=== PATIENT | male | born 1955 | race Caucasian/White ===

== ENCOUNTER 2021-03-11 05:02 | Emergency (ER) | payer SELFPAY ==
[2021-03-11] MEDS ORDERED: HYDROmorphone 1 MG/1 ML INJ IV ONE ×2 (05:51→06:55)
[2021-03-11] MEDS ORDERED: ONDANSETRON 4 MG/2 ML INJ IV ONE (05:52)
--- NOTE | 2021-03-11 05:54 | XRay Report ---
RIGHT SHOULDER 3 VIEWS INDICATION / CLINICAL INFORMATION: possible dislocation COMPARISON: None available. FINDINGS: BONES / JOINT(S): No fracture. Subcoracoid dislocation right shoulder. Mild DJD at the glenohumeral j oint. SOFT TISSUES: No significant abnormality. ADDITIONAL FINDINGS: None. Signer Name: Sanchez Ma MD Signed: 03/11/2021 5:49 AM Workstation Name: [id number]
[2021-03-11] MEDS ORDERED: LIDOCAINE (1%) 10 MG/1 ML VIAL 20 ML MDV INFILTRATI ONE (06:08)
--- NOTE | 2021-03-11 06:36 | Emergency Department Report ---
ED Upper Extremity Inj HPI - General Chief Complaint: Extremity Injury, Upper Stated Complaint: RT SHOULDER PAIN Time Seen by Provider: 03/11/21 06:02 Source: patient Mode of arrival: Ambulatory Limitations: No Limitations, Language Barrier - History of Present Illness Initial Comments: CC: shoulder out of place HPI: This is 65 yo male with hx of shoulder dislocation who presents with spontaneous right shoulder dislocation while asleep. The injury occurred 300 am. He has had previous shoulder dislocations. First injury occurred 10 years ago. Severe right shoulder pain with obvious deformity. No new trauma. MD Complaint: Injury to:: right, shoulder -: This morning Other Extremity Injury: Shoulder: Right Handedness: right Worsens With: movement of extremity Associated Symptoms: denies other symptoms - Related Data Allergies Allergy/AdvReac Type Severity Reaction Status Date / Time No Known Allergies Allergy Unverified 03/11/21 05:25 ED Review of Systems ROS: Stated complaint: RT SHOULDER PAIN Other details as noted in HPI Comment: All other systems reviewed and negative Constitutional: denies: fever, malaise Respiratory: denies: cough, shortness of breath Cardiovascular: denies: chest pain Gastrointestinal: denies: abdominal pain, nausea, vomiting Neurological: denies: numbness, paresthesias ED Past Medical Hx - Past Medical History Previous Medical History?: Yes Hx Arthritis: Yes - Surgical History Past Surgical History?: No - Social History Smoking Status: Never Smoker Substance Use Type: None ED Physical Exam - General Limitations: Language Barrier General appearance: alert, in no apparent distress - Head Head exam: Present: atraumatic, normocephalic - Eye Eye exam: Present: normal appearance - ENT ENT exam: Present: mucous membranes moist - Neck Neck exam: Present: normal inspection, full ROM - Respiratory Respiratory exam: Present: normal lung sounds bilaterally. Absent: respiratory distress, wheezes, rales, rhonchi - Cardiovascular Cardiovascular Exam: Present: regular rate, normal rhythm, normal heart sounds. Absent: systolic murmur, diastolic murmur, rubs, gallop - GI/Abdominal GI/Abdominal exam: Present: soft, normal bowel sounds. Absent: distended, ten derness, guarding, rebound - Rectal Rectal exam: Present: deferred - Extremities Exam Extremities exam: Present: normal inspection - Expanded Upper Extremity Exam Right Shoulder Exam: Present: deformity, dislocation. Absent: tenderness, swelling, abrasion, laceration, ecchymosis, erythema, tenderness over AC joint Upper Arm exam: Present: dislocation Elbow exam: Present: normal inspection, full ROM Forearm Wrist exam: Present: normal inspection, full ROM Hand Wrist exam: Present: normal inspection, full ROM Neuro motor exam: Present: wrist extension intact, thumb opposition intact, thumb IP flexion intact Neurosensory exam: Present: 2-point discrimination - Back Exam Back exam: Present: normal inspection - Neurological Exam Neurological exam: Present: alert, oriented X3 - Psychiatric Psychiatric exam: Present: normal affect, normal mood - Skin Skin exam: Present: warm, dry, intact, normal color. Absent: rash ED Course Vital Signs 03/11/21 03/11/21 03/11/21 05:25 06:00 06:16 Temperature 98.9 F Temperature [ Pre-Procedure] Pulse Rate 94 H Pulse Rate [Pre -Procedure] Respiratory 24 18 Rate Respiratory Rate [Pre- Procedure] Blood Pressure 172/93 O2 Sat by Pulse 96 94 Oximetry O2 Sat by Pulse Oximetry [Pre- Procedure] 03/11/21 03/11/21 03/11/21 06:30 06:46 07:00 Temperature Temperature [ 97.8 F Pre-Procedure] Pulse Rate 86 Pulse Rate [Pre 90 -Procedure] Respiratory 13 Rate Respiratory 20 Rate [Pre- Procedure] Blood Pressure O2 Sat by Pulse 94 96 Oximetry O2 Sat by Pulse 99 Oximetry [Pre- Procedure] 03/11/21 03/11/21 03/11/21 07:13 07:15 07:21 Temperature Temperature [ Pre-Procedure] Pulse Rate 89 Pulse Rate [Pre -Procedure] Respiratory 13 13 20 Rate Respiratory Rate [Pre- Procedure] Blood Pressure 211/114 214/106 O2 Sat by Pulse 90 96 Oximetry O2 Sat by Pulse Oximetry [Pre- Procedure] 03/11/21 03/11/21 03/11/21 07:31 07:45 08:01 Temperature Temperature [ Pre-Procedure] Pulse Rate 84 74 77 Pulse Rate [Pre -Procedure] Respiratory 19 15 12 Rate Respiratory Rate [Pre- Procedure] Blood Pressure 176/98 168/85 169/83 O2 Sat by Pulse 97 89 97 Oximetry O2 Sat by Pulse Oximetry [Pre- Procedure] 03/11/21 03/11/21 03/11/21 08:15 08:31 08:45 Temperature Temperature [ Pre-Procedure] Pulse Rate 72 Pulse Rate [Pre -Procedure] Respiratory 10 L 11 L Rate Respiratory Rate [Pre- Procedure] Blood Pressure 157/84 150/77 150/77 O2 Sat by Pulse 96 95 Oximetry O2 Sat by Pulse Oximetry [Pre- Procedure] - Moderate Sedation Indications: fracture/dislocation redu Presedation Evaluation: Healthy male without significant past medical history. ASA 2 ASA Class: II Mallampati Airway Score: 2 Preparation: computer system validation specialist applied, pulse oximeter, capnometry used, supplemental O2 applied, reversal agents at bedside, suction/airway equipment at bedside, IV secured Ketamine Dose: 100 Complications: none Patient Tolerated Procedure: well Additional Comments: 100 mg Ketamine given, 2 doses of 50 mg Respiratory therapist present. Total time of sedation care observation 702 to 718. - Orthopedic Joint Reduction Joint #1 Consent Obtained: written consent, emergent situation Time Out Performed: Yes Side: right Joint Reduction Location: shoulder Analgesia: moderate sedation, other (intra-articular injection) Local Anesthetic Used: Lidocaine 1% Amount of Anesthetic Used (mls): 20 Shoulder Technique Used (if applicable): traction/counter-traction Technique Used: traction/counter-traction Post-Reduction Neuro Exam: intact Post-Reduction Vascular Exam: intact Post Reduction X-Ray Obtained: Yes Post Reduction X-Ray Results: reduced Splint Applied: Yes Patient Tolerated Procedure: well Additional Comments: Right shoulder immobilizer was applied to the affected extremity under my supervision. After application the extremity was neurovascularly intact with acceptable alignment. ED Medical Decision Making - Radiology Data Radiology results: report reviewed Patient Name: OSITO DOBBINS Gender: Male Date of : 1955 Home Phone: Referring Provider: MODESTA HERNANDEZ Organization: [facility] Accession Number: [id number] Requested Date: March 11, 2021 05:26 Report Status: Final Requested Procedure: 1 Procedure Description: XR shoulder 2+V RT Modality: XR Findings Reporting MD: Sanchez Ma Dictation Time: March 11, 2021 04:49 Classroom Assistant: Not available Sand Digger Date: RIGHT SHOULDER 3 VIEWS INDICATION / CLINICAL INFORMATION: possible dislocation COMPARISON: None available. FINDINGS: BONES / JOINT(S): No fracture. Subcoracoid dislocation right shoulder. Mild DJD at the glenohumeral joint. SOFT TISSUES: No significant abnormality. ADDITIONAL FINDINGS: None. Signer Name: Sanchez Ma MD Signed: 03/11/2021 4:49 AM Workstation Name: [id number] Patient Name: OSITO DOBBINS Gender: Male Date of : 1955 Home Phone: Referring Provider: ROMINA AGUILA Organization: [facility] Accession Number: [id number] Requested Date: March 11, 2021 07:11 Report Status: Final Requested Procedure: 1 Procedure Description: XR shoulder 1V RT Modality: XR Findings Reporting MD: Corbin Campbell Dictation Time: March 11, 2021 08:01 Classroom Assistant: Not available Sand Digger Date: Right shoulder radiograph, single view. HISTORY: Reduction. COMPARISON: 03/11/2021 at 0537 hours. FINDINGS: Single provided frontal view of the right shoulder demonstrates improved right glenohumeral joint malalignment. Recommend follow-up with dedicated axillary or scapular Y views to better assess the glenohumeral joint alignment. No acute fracture. There is marked narrowing of the subacromial space, most consistent with chronic rotator cuff insufficiency. Signer Name: Corbin Campbell MD Signed: 03/11/2021 8:01 AM Workstation Name: [id number] - Medical Decision Making Right shoulder dislocation spontaneous suspect rotator cuff injury, shoulder girdle is unstable easily dislocated after reduction. Patient required reduction under moderate sedation and intra-articular lidocaine injection which was successful. Patient referred to orthopedic surgeon. Recommended keeping shoulder immobilizer in place until evaluated by specialist. Critical care attestation.: If time is entered above; I have spent that time in minutes in the direct care of this critically ill patient, excluding procedure time. ED Disposition Clinical Impression: Shoulder dislocation, recurrent, Rotator cuff arthropathy of right shoulder Disposition: DC-01 TO HOME OR SELFCARE Is pt being admited?: No Does the pt Need Aspirin: No Condition: Stable Instructions: Shoulder Dislocation, Moderate Conscious Sedation, Adult, Care After Referrals: CHELLE MCKENNA MD [Staff Physician] - 3-5 Days Forms: Work/School Release Form(ED) Print Language: SYRIAN
[2021-03-11] MEDS ORDERED: KETAMINE 500 MG/5 ML VIAL MDV IV ONE ×2 (06:39→06:44)
--- NOTE | 2021-03-11 09:05 | XRay Report ---
Right shoulder radiograph, single view. HISTORY: Reduction. COMPARISON: 03/11/2021 at 0537 hours. FINDINGS: Single provided frontal view of the right shoulder demonstrates improved right glenohumeral joint malalignment. Recommend follow-up with dedicated axillary or scapular Y views to better assess the glenohumeral joint alignment. No acute fracture. There is marked narrowing of the subacromial sp qian, most consistent with chronic rotator cuff insufficiency. Signer Name: Corbin Campbell MD Signed: 03/11/2021 9:01 AM Workstation Name: [id number]
[2021-03-11 09:47] VITALS: BP 156/80
== END 2021-03-11 09:39 | disposition home or self-care (01) ==
LOC: ED 05:02
DX: M24.411 Recurrent dislocation, right shoulder (principal); M13.811 Other specified arthritis, right shoulder
CPT/HCPCS: 23650; 73020; 73030; 96374; 96375; 96376; 99283; J1170; J2405